=== PATIENT | male | born 1955 | race Caucasian/White ===

== ENCOUNTER 2020-04-06 09:12 | Inpatient (IN) ==
[2020-04-06] MEDS ORDERED: ONDANSETRON 4 MG/2 ML VIAL IV STA (11:14)
[2020-04-06] MEDS ORDERED: HYDROmorphone 2 MG/1 ML VIAL IV STA (11:14)
[2020-04-06] MEDS ORDERED: DEXAMETHASONE 10 MG/1 ML VIAL IV STA (11:15)
[2020-04-06 11:51] LABS: Basophils % 0.5 % (0.0-0.8); Eosinophils % 0.4 % (0.00-10.9); Hematocrit 53.5 VOL% (42.0-52.0); Immature Granulocytes % 0.4 %; Immature Granulocytes Absolute 0.03 #; Lymphocytes # 1.4 10*3/uL (1.4-4.0); Lymphocytes % 16.4 % (21.2-54.2); Mean Corpuscular HGB Conc 33.6 GM/DL (32-36); Mean Corpuscular Volume 92.2 FL (87-102); Mean Platelet Volume 9.2 FL (9.6-12.0); Monocytes % 6.5 % (1.7-12.7); Neutrophils % 75.8 % (38.7-73.9); Platelet Count 156 T/CUMM (130-400); Red Cell Distribution Width 11.9 % (9.3-17.3); White Blood Count 8.4 T/CUMM (4-12)
[2020-04-06 12:03] LABS: Bilirubin,Urine Negative (Negative); Blood, Urine Negative (Negative); Glucose,Urine (UA) Negative (Negative); Ketones,Urine Negative (Negative); Mucus,Urine Occasional /LPF (Occasional); Nitrite,Urine Negative (Negative); Protein,Urine Negative; RBC,Urine 1 /HPF (0-4); Urine Appearance CLEAR (Clear); Urine Color Yellow (Yellow); Urine Urobilinogen < 2.0 EU/DL (0.2-1.0)
[2020-04-06 12:08] LABS: Albumin 4.3 G/DL (3.4-5.0); Bilirubin,Total 0.9 MG/DL (0.2-1.0); Calcium 9.8 MG/DL (8.5-10.1); Osmolality,Calculated 271.1 MOS/KG (273-304); Potassium 4.2 MMOL/L (3.5-5.1); Total Protein 8.2 G/DL (6.4-8.3)
[2020-04-06 13:38] LABS: INR 1.1; PT Patient Result 11.8 SECS (9.8-11.9); Partial Thromboplastin Time 28.3 SECS (23.9-33.8)
[2020-04-06] MEDS ORDERED: GLUCAGON 1 MG VIAL IM PRN (14:04)
[2020-04-06] MEDS ORDERED: DEXTROSE 50% 25 GM/50 ML VIAL IV PRN (14:04)
[2020-04-06] MEDS ORDERED: hydrALAZINE 20 MG/1 ML VIAL IV PRN (14:04)
[2020-04-06] MEDS ORDERED: ACETAMINOPHEN 325 MG TABLET PO PRN (14:04)
[2020-04-06] MEDS ORDERED: DOCUSATE SODIUM 100 MG CAPSULE PO PRN (14:04)
[2020-04-06] MEDS ORDERED: ONDANSETRON 4 MG/2 ML VIAL IV PRN (14:04)
[2020-04-06] MEDS: SODIUM CHLORIDE 0.9% 1,000 ML IV SCH (15:40)
[2020-04-06] MEDS: DEXAMETHASONE 4 MG TABLET PO SCH ×2 (15:44→21:22)
[2020-04-06] MEDS: BUPRENORPHINE NALOXONE BUCCAL SCH (21:21)
[2020-04-07 06:00] LABS: Basophils % 0.1 % (0.0-0.8); Hematocrit 48.5 VOL% (42.0-52.0); Hemoglobin 16.8 GM/DL (14.0-18.0); Immature Granulocytes % 0.3 %; Immature Granulocytes Absolute 0.03 #; Lymphocytes % 10.3 % (21.2-54.2); Mean Corpuscular HGB Conc 34.6 GM/DL (32-36); Mean Platelet Volume 9.4 FL (9.6-12.0); Monocytes % 4.2 % (1.7-12.7); Neutrophils % 85.1 % (38.7-73.9); Platelet Count 150 T/CUMM (130-400); Red Blood Count 5.39 MC/CUMM (3.8-5.5); Red Cell Distribution Width 11.7 % (9.3-17.3); White Blood Count 9.5 T/CUMM (4-12)
[2020-04-07 06:35] LABS: Albumin 3.7 G/DL (3.4-5.0); Bilirubin,Total 0.8 MG/DL (0.2-1.0); Calcium 9.5 MG/DL (8.5-10.1); Osmolality,Calculated 275.1 MOS/KG (273-304); Potassium 4.6 MMOL/L (3.5-5.1); Risk Ratio 4.92; Thyroid Stimulating Hormone 0.088 uIU/ml (0.358-3.74); Total Protein 7.3 G/DL (6.4-8.3); VLDL CHOLESTEROL 8.8 MG/DL
[2020-04-07 08:57] LABS: Free T4 (Free Thyroxine) 0.99 NG/DL (0.76-1.46)
[2020-04-07] MEDS ORDERED: DIAZEPAM 5 MG TABLET PO ONE (09:22)
[2020-04-07] MEDS ORDERED: SODIUM CHLORIDE 0.45% 1,000 ML IV SCH (09:30)
[2020-04-07] MEDS: DEXAMETHASONE 4 MG TABLET PO SCH ×3 (09:40→21:40)
[2020-04-07] MEDS: PANTOPRAZOLE 40 MG TABLET PO SCH (09:40)
[2020-04-07] MEDS: BUPRENORPHINE NALOXONE BUCCAL SCH ×2 (11:58→21:42)
[2020-04-07] MEDS ORDERED: NICOTINE 21 MG/24 HR PATCH TRANSDERM PRN (11:58)
[2020-04-07] MEDS ORDERED: SCOPOLAMINE 1.5 MG PATCH TRANSDERM SCH (12:00)
[2020-04-07] MEDS: SODIUM CHLORIDE 0.9% 1,000 ML IV SCH (15:30)
[2020-04-08 06:28] LABS: Basophils % 0.1 % (0.0-0.8); Hematocrit 42.3 VOL% (42.0-52.0); Hemoglobin 14.9 GM/DL (14.0-18.0); Immature Granulocytes % 0.4 %; Immature Granulocytes Absolute 0.05 #; Lymphocytes # 1.3 10*3/uL (1.4-4.0); Lymphocytes % 10.5 % (21.2-54.2); Mean Corpuscular HGB Conc 35.2 GM/DL (32-36); Mean Corpuscular Volume 89.2 FL (87-102); Mean Platelet Volume 9.7 FL (9.6-12.0); Monocytes % 6.4 % (1.7-12.7); Neutrophils % 82.6 % (38.7-73.9); Platelet Count 134 T/CUMM (130-400); Red Blood Count 4.74 MC/CUMM (3.8-5.5); Red Cell Distribution Width 11.8 % (9.3-17.3); White Blood Count 11.9 T/CUMM (4-12)
[2020-04-08 07:28] LABS: Albumin 3.2 G/DL (3.4-5.0); Bilirubin,Total 1.4 MG/DL (0.2-1.0); Calcium 9.2 MG/DL (8.5-10.1); Potassium 4.6 MMOL/L (3.5-5.1); Total Protein 6.3 G/DL (6.4-8.3)
[2020-04-08] MEDS ORDERED: DIAZEPAM 5 MG TABLET PO ONE (08:00)
[2020-04-08] MEDS: DEXAMETHASONE 4 MG TABLET PO SCH ×3 (09:49→20:34)
[2020-04-08] MEDS: PANTOPRAZOLE 40 MG TABLET PO SCH (09:50)
[2020-04-08] MEDS: SODIUM CHLORIDE 0.9% 1,000 ML IV SCH (10:00)
[2020-04-08] MEDS: BUPRENORPHINE NALOXONE BUCCAL SCH ×2 (11:15→20:35)
[2020-04-09] MEDS: DEXAMETHASONE 4 MG TABLET PO SCH (08:35)
[2020-04-09] MEDS: PANTOPRAZOLE 40 MG TABLET PO SCH (08:35)
[2020-04-09] MEDS: BUPRENORPHINE NALOXONE BUCCAL SCH (08:49)
[2020-04-09 10:15] VITALS: BP 141/65
== END 2020-04-09 13:41 | disposition hospice, home (50) | DRG 54 ==
LOC: N.ED 09:12 → N.EDINP 14:04 → N.4E 16:15
PROVIDERS: ADMIT Internal Medicine; ATTEND Internal Medicine

== ENCOUNTER 2021-01-16 21:11 | Inpatient (IN) ==
[2021-01-16 21:38] LABS: Eosinophils % 0.1 % (0.00-10.9); Hematocrit 33.4 VOL% (42.0-52.0); Hemoglobin 10.9 GM/DL (14.0-18.0); Immature Granulocytes % 0.6 %; Immature Granulocytes Absolute 0.06 #; Lymphocytes # 0.2 10*3/uL (1.4-4.0); Lymphocytes % 1.9 % (21.2-54.2); Mean Corpuscular HGB Conc 32.6 GM/DL (32-36); Mean Corpuscular Volume 99.1 FL (87-102); Mean Platelet Volume 10.5 FL (9.6-12.0); Monocytes % 6.7 % (1.7-12.7); Neutrophils % 90.7 % (38.7-73.9); Platelet Count 95 T/CUMM (130-400); Red Blood Count 3.37 MC/CUMM (3.8-5.5); Red Cell Distribution Width 15.5 % (9.3-17.3); White Blood Count 10.1 T/CUMM (4-12)
[2021-01-16 21:55] LABS: Alanine Aminotransferase 86 U/L (16-61); Albumin 2.6 G/DL (3.4-5.0); Alkaline Phosphatase 202 U/L (45-117); Aspartate Amino Transferase 29 U/L (0-37); Blood Urea Nitrogen 28 MG/DL (7-18); Calcium 10.6 MG/DL (8.5-10.1); Carbon Dioxide 29 MMOL/L (21-32); Estimated Glom Filtration Rate 108 ML/MIN; Glucose 91 MG/DL (74-106); Osmolality,Calculated 284.4 MOS/KG (273-304); Potassium 4.6 MMOL/L (3.5-5.1); Sodium 140 MMOL/L (136-145); Total Protein 5.7 G/DL (6.4-8.2)
[2021-01-16 22:18] LABS: Lactic Acid 2.2 MMOL/L (0.4-2.0)
[2021-01-16] MEDS ORDERED: SODIUM CHLORIDE 0.9% 2,000 ML IV STA (22:48)
[2021-01-16 23:08] LABS: Bilirubin,Urine Negative (Negative); Blood, Urine Negative (Negative); Glucose,Urine (UA) Negative (Negative); Ketones,Urine Negative (Negative); Mucus,Urine Occasional /LPF (Occasional); Nitrite,Urine Negative (Negative); Protein,Urine Negative; RBC,Urine 3 /HPF (0-4); Urine Appearance CLEAR (Clear); Urine Color Yellow (Yellow); Urine Specific Gravity 1.016 (1.001-1.035)
[2021-01-16] MEDS ORDERED: LEVOFLOXACIN INJ 750 MG/150 ML PREMIX IV STA (23:33)
[2021-01-17] MEDS ORDERED: DEXAMETHASONE 4 MG TABLET ONE (09:47)
[2021-01-17] MEDS ORDERED: CITALOPRAM 20 MG TABLET ONE (09:47)
[2021-01-17] MEDS ORDERED: ENOXAPARIN 40 MG/0.4 ML SYRINGE ONE (09:47)
[2021-01-17] MEDS ORDERED: MEMANTINE 10 MG TABLET ONE (09:47)
[2021-01-17] MEDS ORDERED: PANTOPRAZOLE 40 MG TABLET PO ONE (09:47)
[2021-01-17] MEDS: MEMANTINE 10 MG TABLET PO SCH (09:50)
[2021-01-17] MEDS: PANTOPRAZOLE 40 MG TABLET PO SCH (09:50)
[2021-01-17] MEDS: CITALOPRAM 20 MG TABLET PO SCH (09:50)
[2021-01-17] MEDS ORDERED: DEXAMETHASONE INJ 40 MG in SODIUM CHLORIDE 0.9% 50 ML IV ONE (13:00)
[2021-01-17 14:36] LABS: Albumin 2.2 G/DL (3.4-5.0); Bilirubin,Total 0.4 MG/DL (0.20-1.00); Osmolality,Calculated 282.4 MOS/KG (273-304); Potassium 4.1 MMOL/L (3.5-5.1); Total Protein 5.2 G/DL (6.4-8.2)
[2021-01-17] MEDS ORDERED: ENOXAPARIN 40 MG/0.4 ML SYRINGE SUBCUT SCH (16:00)
[2021-01-17 17:05] LABS: Eosinophils % 0.1 % (0.00-10.9); Hematocrit 31.8 VOL% (42.0-52.0); Hemoglobin 10.5 GM/DL (14.0-18.0); Immature Granulocytes % 0.8 %; Immature Granulocytes Absolute 0.06 #; Lymphocytes # 0.2 10*3/uL (1.4-4.0); Lymphocytes % 2.1 % (21.2-54.2); Mean Corpuscular Volume 98.1 FL (87-102); Mean Platelet Volume 10.3 FL (9.6-12.0); Monocytes % 4.1 % (1.7-12.7); Neutrophils % 92.9 % (38.7-73.9); Platelet Count 87 T/CUMM (130-400); Red Blood Count 3.24 MC/CUMM (3.8-5.5); Red Cell Distribution Width 15.1 % (9.3-17.3); White Blood Count 7.7 T/CUMM (4-12)
[2021-01-17 17:09] LABS: Red Blood Count 3.29 MC/CUMM (3.8-5.5); White Blood Count 8.7 T/CUMM (4-12)
[2021-01-17 17:10] LABS: Basophils % 0.1 % (0.0-0.8); Eosinophils % 0.2 % (0.00-10.9); Hematocrit 32.9 VOL% (42.0-52.0); Hemoglobin 10.7 GM/DL (14.0-18.0); Immature Granulocytes % 0.5 %; Immature Granulocytes Absolute 0.04 #; Lymphocytes # 0.2 10*3/uL (1.4-4.0); Lymphocytes % 2.7 % (21.2-54.2); Mean Corpuscular HGB Conc 32.5 GM/DL (32-36); Mean Platelet Volume 10.6 FL (9.6-12.0); Monocytes % 8.2 % (1.7-12.7); Neutrophils % 88.3 % (38.7-73.9); Platelet Count 80 T/CUMM (130-400); Red Cell Distribution Width 15.2 % (9.3-17.3)
[2021-01-17 17:11] LABS: Lymphocytes 2 % (20-55); Platelet Estimate Adequate; Segmented Neutrophils 92 % (50-85); Total Cells Counted 100
[2021-01-17 17:45] LABS: Folate 23.07 NG/ML (5.38-24.0); Vitamin B12 576 PG/ML (211-911)
[2021-01-17] MEDS: SODIUM CHLORIDE 0.9% 1,000 ML IV SCH (17:53)
[2021-01-17] MEDS: DOXYCYCLINE HYCLATE INJ 100 MG in SODIUM CHLORIDE 0.9% 100 ML IV SCH (17:53)
[2021-01-17 19:14] LABS: Band Neutrophils 3 % (0-10); Lymphocytes 1 % (20-55); Platelet Estimate Adequate; Polychromasia Slight; Segmented Neutrophils 95 % (50-85); Total Cells Counted 100
[2021-01-17 19:36] LABS: Sedimentation Rate-Westergren 65 MM/HR (0-20)
[2021-01-18] MEDS: MEMANTINE 10 MG TABLET PO SCH ×3 (00:37→21:41)
[2021-01-18] MEDS: LEVOFLOXACIN INJ 750 MG/150 ML PREMIX IV SCH ×2 (00:47→01:22)
[2021-01-18] MEDS: DOXYCYCLINE HYCLATE INJ 100 MG in SODIUM CHLORIDE 0.9% 100 ML IV SCH ×2 (05:07→21:41)
[2021-01-18] MEDS: ACETAMINOPHEN 325 MG TABLET PO PRN (05:13)
[2021-01-18 06:06] LABS: Hematocrit 30.1 VOL% (42.0-52.0); Hemoglobin 9.9 GM/DL (14.0-18.0); Immature Granulocytes % 0.9 %; Immature Granulocytes Absolute 0.06 #; Lymphocytes # 0.2 10*3/uL (1.4-4.0); Lymphocytes % 3.4 % (21.2-54.2); Mean Corpuscular HGB Conc 32.9 GM/DL (32-36); Mean Corpuscular Volume 97.7 FL (87-102); Mean Platelet Volume 11.1 FL (9.6-12.0); Neutrophils % 87.7 % (38.7-73.9); Platelet Count 84 T/CUMM (130-400); Red Blood Count 3.08 MC/CUMM (3.8-5.5); Red Cell Distribution Width 14.9 % (9.3-17.3); White Blood Count 6.7 T/CUMM (4-12)
[2021-01-18 06:30] LABS: Lymphocytes 2 % (20-55); Segmented Neutrophils 92 % (50-85); Total Cells Counted 100
[2021-01-18 06:31] LABS: Macrocytosis Slight; Platelet Estimate Decreased
[2021-01-18 06:34] LABS: Albumin 2.3 G/DL (3.4-5.0); Bilirubin,Total 0.8 MG/DL (0.20-1.00); Calcium 10.6 MG/DL (8.5-10.1); Potassium 3.9 MMOL/L (3.5-5.1); Total Protein 5.3 G/DL (6.4-8.2)
[2021-01-18] MEDS: PANTOPRAZOLE 40 MG TABLET PO SCH (09:49)
[2021-01-18] MEDS: CITALOPRAM 20 MG TABLET PO SCH (09:49)
[2021-01-18 10:30] LABS: Hemoglobin A1 (Alkaline) 98.1 % (96.5-98.5); Hemoglobin A2 (Alkaline) 1.9 % (1.5-3.5)
[2021-01-18] MEDS: DEXAMETHASONE INJ 20 MG in SODIUM CHLORIDE 0.9% 50 ML IV SCH (11:08)
[2021-01-18] MEDS: SODIUM CHLORIDE 0.9% 1,000 ML IV SCH (14:25)
[2021-01-19 02:06] LABS: Basophils % 0.1 % (0.0-0.8); Hematocrit 31.4 VOL% (42.0-52.0); Hemoglobin 10.4 GM/DL (14.0-18.0); Immature Granulocytes Absolute 0.09 #; Lymphocytes # 0.2 10*3/uL (1.4-4.0); Lymphocytes % 2.3 % (21.2-54.2); Mean Corpuscular HGB Conc 33.1 GM/DL (32-36); Mean Corpuscular Volume 96.6 FL (87-102); Mean Platelet Volume 10.5 FL (9.6-12.0); Monocytes % 7.1 % (1.7-12.7); Neutrophils % 89.5 % (38.7-73.9); Platelet Count 75 T/CUMM (130-400); Red Blood Count 3.25 MC/CUMM (3.8-5.5); Red Cell Distribution Width 14.6 % (9.3-17.3); White Blood Count 8.7 T/CUMM (4-12)
[2021-01-19 02:26] LABS: Calcium 10.2 MG/DL (8.5-10.1); Osmolality,Calculated 281.5 MOS/KG (273-304); Potassium 3.9 MMOL/L (3.5-5.1)
[2021-01-19] MEDS: ACETAMINOPHEN 325 MG TABLET PO PRN ×2 (02:46→20:42)
[2021-01-19 02:57] LABS: Lymphocytes 5 % (20-55); Platelet Estimate Normal; Segmented Neutrophils 91 % (50-85); Total Cells Counted 100
[2021-01-19 02:58] LABS: Hypochromasia Slight; Ovalocytes Few; Polychromasia Few
[2021-01-19 02:59] LABS: Schistocytes Slight
[2021-01-19] MEDS: SODIUM CHLORIDE 0.9% 1,000 ML IV SCH ×2 (05:11→20:42)
[2021-01-19] MEDS: CITALOPRAM 20 MG TABLET PO SCH (08:18)
[2021-01-19] MEDS: DEXAMETHASONE INJ 20 MG in SODIUM CHLORIDE 0.9% 50 ML IV SCH (08:18)
[2021-01-19] MEDS: PANTOPRAZOLE 40 MG TABLET PO SCH (08:18)
[2021-01-19] MEDS: MEMANTINE 10 MG TABLET PO SCH ×2 (08:18→20:42)
[2021-01-19] MEDS: DOXYCYCLINE HYCLATE INJ 100 MG in SODIUM CHLORIDE 0.9% 100 ML IV SCH (08:39)
[2021-01-19] MEDS: LEVOFLOXACIN INJ 750 MG/150 ML PREMIX IV SCH (09:00)
[2021-01-19] MEDS: LEVOFLOXACIN 750 MG TABLET PO SCH (11:21)
[2021-01-19] MEDS: predniSONE 5 MG TABLET PO SCH (20:42)
[2021-01-19] MEDS: ENOXAPARIN 30 MG/0.3 ML SYRINGE SUBCUT SCH (20:42)
[2021-01-19] MEDS: DOXYCYCLINE HYCLATE 100 MG CAPSULE PO SCH (20:42)
[2021-01-20] MEDS: MEMANTINE 10 MG TABLET PO SCH ×2 (09:27→21:36)
[2021-01-20] MEDS: PANTOPRAZOLE 40 MG TABLET PO SCH (09:27)
[2021-01-20] MEDS: CITALOPRAM 20 MG TABLET PO SCH (09:27)
[2021-01-20] MEDS: DOXYCYCLINE HYCLATE 100 MG CAPSULE PO SCH ×2 (09:27→21:37)
[2021-01-20] MEDS: LEVOFLOXACIN 750 MG TABLET PO SCH (09:27)
[2021-01-20] MEDS: predniSONE 5 MG TABLET PO SCH ×2 (09:28→21:37)
[2021-01-20] MEDS: SODIUM CHLORIDE 0.9% 1,000 ML IV SCH (09:29)
[2021-01-20] MEDS: ENOXAPARIN 30 MG/0.3 ML SYRINGE SUBCUT SCH (21:37)
[2021-01-21] MEDS: SODIUM CHLORIDE 0.9% 1,000 ML IV SCH (03:36)
[2021-01-21] MEDS: MEMANTINE 10 MG TABLET PO SCH ×2 (08:55→20:18)
[2021-01-21] MEDS: predniSONE 5 MG TABLET PO SCH ×2 (08:55→20:18)
[2021-01-21] MEDS: PANTOPRAZOLE 40 MG TABLET PO SCH (08:55)
[2021-01-21] MEDS: DOXYCYCLINE HYCLATE 100 MG CAPSULE PO SCH ×2 (08:55→20:18)
[2021-01-21] MEDS: CITALOPRAM 20 MG TABLET PO SCH (08:55)
[2021-01-21] MEDS: LEVOFLOXACIN 750 MG TABLET PO SCH (08:55)
[2021-01-21] MEDS ORDERED: MAGNESIUM HYDROXIDE SUSP 30 ML UDCUP PO ONE (13:00)
[2021-01-21] MEDS: DOCUSATE SODIUM 100 MG CAPSULE PO SCH ×2 (14:13→20:18)
[2021-01-21] MEDS: POLYETHYLENE GLYCOL POWDER 17 GM PACK PO SCH (14:14)
[2021-01-21] MEDS: ENOXAPARIN 30 MG/0.3 ML SYRINGE SUBCUT SCH (20:17)
[2021-01-22 06:18] LABS: Eosinophils # 0.1 10*3/uL (0.0-0.87); Hematocrit 30.7 VOL% (42.0-52.0); Hemoglobin 10.1 GM/DL (14.0-18.0); Immature Granulocytes % 1.5 %; Immature Granulocytes Absolute 0.09 #; Lymphocytes # 0.2 10*3/uL (1.4-4.0); Lymphocytes % 4.1 % (21.2-54.2); Mean Corpuscular HGB Conc 32.9 GM/DL (32-36); Mean Corpuscular Volume 98.7 FL (87-102); Mean Platelet Volume 10.7 FL (9.6-12.0); Monocytes % 7.3 % (1.7-12.7); Neutrophils % 86.1 % (38.7-73.9); Platelet Count 69 T/CUMM (130-400); Red Blood Count 3.11 MC/CUMM (3.8-5.5); Red Cell Distribution Width 14.8 % (9.3-17.3); White Blood Count 5.9 T/CUMM (4-12)
[2021-01-22 06:28] LABS: Band Neutrophils 1 % (0-10); Eosinophils 1 % (0-10); Lymphocytes 5 % (20-55); Platelet Estimate Decreased; Segmented Neutrophils 91 % (50-85); Total Cells Counted 100
[2021-01-22 06:35] LABS: Calcium 9.3 MG/DL (8.5-10.1); Osmolality,Calculated 280.4 MOS/KG (273-304); Potassium 3.8 MMOL/L (3.5-5.1)
[2021-01-22] MEDS: LEVOFLOXACIN 750 MG TABLET PO SCH (09:31)
[2021-01-22] MEDS: PANTOPRAZOLE 40 MG TABLET PO SCH (09:31)
[2021-01-22] MEDS: CITALOPRAM 20 MG TABLET PO SCH (09:31)
[2021-01-22] MEDS: MEMANTINE 10 MG TABLET PO SCH ×2 (09:31→20:59)
[2021-01-22] MEDS: predniSONE 5 MG TABLET PO SCH ×2 (09:31→20:59)
[2021-01-22] MEDS: DOXYCYCLINE HYCLATE 100 MG CAPSULE PO SCH ×2 (09:31→20:59)
[2021-01-22] MEDS: DOCUSATE SODIUM 100 MG CAPSULE PO SCH ×2 (09:31→20:59)
[2021-01-22] MEDS: POLYETHYLENE GLYCOL POWDER 17 GM PACK PO SCH (09:44)
[2021-01-22] MEDS: MINERAL OIL/PETROLATUM OPH OINT 3.5 GM TUBE BOTH EYES SCH ×2 (13:30→20:59)
[2021-01-22] MEDS: ENOXAPARIN 30 MG/0.3 ML SYRINGE SUBCUT SCH (20:59)
[2021-01-23] MEDS: DOXYCYCLINE HYCLATE 100 MG CAPSULE PO SCH ×2 (09:18→21:02)
[2021-01-23] MEDS: POLYETHYLENE GLYCOL POWDER 17 GM PACK PO SCH (09:18)
[2021-01-23] MEDS: CITALOPRAM 20 MG TABLET PO SCH (09:18)
[2021-01-23] MEDS: DOCUSATE SODIUM 100 MG CAPSULE PO SCH ×2 (09:18→21:02)
[2021-01-23] MEDS: MEMANTINE 10 MG TABLET PO SCH ×2 (09:19→21:01)
[2021-01-23] MEDS: predniSONE 5 MG TABLET PO SCH ×2 (09:20→21:02)
[2021-01-23] MEDS: LEVOFLOXACIN 750 MG TABLET PO SCH (09:20)
[2021-01-23] MEDS: PANTOPRAZOLE 40 MG TABLET PO SCH (09:20)
[2021-01-23] MEDS: MINERAL OIL/PETROLATUM OPH OINT 3.5 GM TUBE BOTH EYES SCH ×2 (09:21→21:02)
[2021-01-23] MEDS: LINACLOTIDE 145 MCG CAPSULE PO SCH (13:34)
[2021-01-23] MEDS ORDERED: SODIUM CHLORIDE 0.9% 250 ML IV ONE (16:02)
[2021-01-23] MEDS: ENOXAPARIN 30 MG/0.3 ML SYRINGE SUBCUT SCH (21:02)
[2021-01-24 04:55] LABS: Basophils % 0.2 % (0.0-0.8); Eosinophils # 0.1 10*3/uL (0.0-0.87); Eosinophils % 0.9 % (0.00-10.9); Hematocrit 31.7 VOL% (42.0-52.0); Hemoglobin 10.3 GM/DL (14.0-18.0); Immature Granulocytes % 1.5 %; Lymphocytes # 0.2 10*3/uL (1.4-4.0); Lymphocytes % 3.6 % (21.2-54.2); Mean Corpuscular HGB Conc 32.5 GM/DL (32-36); Mean Corpuscular Volume 100.3 FL (87-102); Mean Platelet Volume 10.7 FL (9.6-12.0); Monocytes % 7.5 % (1.7-12.7); Neutrophils % 86.3 % (38.7-73.9); Platelet Count 61 T/CUMM (130-400); Red Blood Count 3.16 MC/CUMM (3.8-5.5); Red Cell Distribution Width 14.4 % (9.3-17.3); White Blood Count 6.7 T/CUMM (4-12)
[2021-01-24 05:12] LABS: Osmolality,Calculated 278.5 MOS/KG (273-304); Potassium 4.5 MMOL/L (3.5-5.1)
[2021-01-24 05:15] LABS: Band Neutrophils 2 % (0-10); Eosinophils 1 % (0-10); Hypochromasia 1+; Lymphocytes 5 % (20-55); Myelocytes 1 %; Polychromasia Slight; Segmented Neutrophils 86 % (50-85); Target Cells Slight; Total Cells Counted 100
[2021-01-24 05:16] LABS: Macrocytosis Slight; Platelet Estimate Decreased
[2021-01-24] MEDS: POLYETHYLENE GLYCOL POWDER 17 GM PACK PO SCH (08:38)
[2021-01-24] MEDS: LINACLOTIDE 145 MCG CAPSULE PO SCH (08:40)
[2021-01-24] MEDS: CITALOPRAM 20 MG TABLET PO SCH (08:40)
[2021-01-24] MEDS: DOCUSATE SODIUM 100 MG CAPSULE PO SCH ×2 (08:41→21:05)
[2021-01-24] MEDS: PANTOPRAZOLE 40 MG TABLET PO SCH (08:41)
[2021-01-24] MEDS: LEVOFLOXACIN 750 MG TABLET PO SCH (08:42)
[2021-01-24] MEDS: MEMANTINE 10 MG TABLET PO SCH ×2 (08:42→21:05)
[2021-01-24] MEDS: DOXYCYCLINE HYCLATE 100 MG CAPSULE PO SCH ×2 (08:43→21:04)
[2021-01-24] MEDS: predniSONE 5 MG TABLET PO SCH ×2 (08:43→21:04)
[2021-01-24] MEDS: MINERAL OIL/PETROLATUM OPH OINT 3.5 GM TUBE BOTH EYES SCH ×2 (08:43→21:06)
[2021-01-24] MEDS ORDERED: BISACODYL 10 MG SUPP RECTAL PRN (13:23)
[2021-01-24] MEDS: ACETAMINOPHEN 325 MG TABLET PO PRN (21:04)
[2021-01-24] MEDS: ENOXAPARIN 30 MG/0.3 ML SYRINGE SUBCUT SCH (21:06)
[2021-01-25] MEDS: ACETAMINOPHEN 325 MG TABLET PO PRN (06:09)
[2021-01-25] MEDS: SODIUM CHLORIDE 0.9% 1,000 ML IV SCH (09:42)
[2021-01-25] MEDS: CITALOPRAM 20 MG TABLET PO SCH (13:19)
[2021-01-25] MEDS: predniSONE 5 MG TABLET PO SCH ×2 (13:19→23:12)
[2021-01-25] MEDS: LINACLOTIDE 145 MCG CAPSULE PO SCH (13:19)
[2021-01-25] MEDS: LEVOFLOXACIN 750 MG TABLET PO SCH (13:19)
[2021-01-25] MEDS: POLYETHYLENE GLYCOL POWDER 17 GM PACK PO SCH (13:19)
[2021-01-25] MEDS: MEMANTINE 10 MG TABLET PO SCH ×2 (13:19→23:11)
[2021-01-25] MEDS: DOCUSATE SODIUM 100 MG CAPSULE PO SCH ×2 (13:20→23:10)
[2021-01-25] MEDS: DOXYCYCLINE HYCLATE 100 MG CAPSULE PO SCH ×2 (13:20→23:11)
[2021-01-25] MEDS: PANTOPRAZOLE 40 MG TABLET PO SCH (13:20)
[2021-01-25] MEDS: MINERAL OIL/PETROLATUM OPH OINT 3.5 GM TUBE BOTH EYES SCH ×2 (13:30→23:12)
[2021-01-25] MEDS: ENOXAPARIN 30 MG/0.3 ML SYRINGE SUBCUT SCH (23:12)
[2021-01-26] MEDS: predniSONE 5 MG TABLET PO SCH ×2 (09:08→21:41)
[2021-01-26] MEDS: DOXYCYCLINE HYCLATE 100 MG CAPSULE PO SCH (09:08)
[2021-01-26] MEDS: PANTOPRAZOLE 40 MG TABLET PO SCH (09:08)
[2021-01-26] MEDS: DOCUSATE SODIUM 100 MG CAPSULE PO SCH ×2 (09:08→21:41)
[2021-01-26] MEDS: MEMANTINE 10 MG TABLET PO SCH ×2 (09:08→21:41)
[2021-01-26] MEDS: LINACLOTIDE 145 MCG CAPSULE PO SCH (09:08)
[2021-01-26] MEDS: LEVOFLOXACIN 750 MG TABLET PO SCH (09:08)
[2021-01-26] MEDS: CITALOPRAM 20 MG TABLET PO SCH (09:09)
[2021-01-26] MEDS: MINERAL OIL/PETROLATUM OPH OINT 3.5 GM TUBE BOTH EYES SCH ×2 (09:10→21:42)
[2021-01-26] MEDS: POLYETHYLENE GLYCOL POWDER 17 GM PACK PO SCH (09:10)
[2021-01-26] MEDS ORDERED: TUBERCULIN SKIN TEST 0.1 ML SYRINGE INTRADERM ONE (11:00)
[2021-01-26] MEDS: SODIUM CHLORIDE 0.9% 1,000 ML IV SCH (17:38)
[2021-01-26] MEDS: ENOXAPARIN 30 MG/0.3 ML SYRINGE SUBCUT SCH (21:42)
[2021-01-27 05:51] LABS: Basophils % 0.1 % (0.0-0.8); Eosinophils # 0.1 10*3/uL (0.0-0.87); Eosinophils % 0.7 % (0.00-10.9); Hematocrit 29.3 VOL% (42.0-52.0); Hemoglobin 9.6 GM/DL (14.0-18.0); Immature Granulocytes % 0.7 %; Immature Granulocytes Absolute 0.05 #; Lymphocytes # 0.2 10*3/uL (1.4-4.0); Lymphocytes % 2.4 % (21.2-54.2); Mean Corpuscular HGB Conc 32.8 GM/DL (32-36); Mean Corpuscular Volume 100.3 FL (87-102); Monocytes % 7.3 % (1.7-12.7); Neutrophils % 88.8 % (38.7-73.9); Red Blood Count 2.92 MC/CUMM (3.8-5.5); Red Cell Distribution Width 13.4 % (9.3-17.3); White Blood Count 7.1 T/CUMM (4-12)
[2021-01-27 06:09] LABS: Calcium 12.3 MG/DL (8.5-10.1); Osmolality,Calculated 279.8 MOS/KG (273-304); Potassium 3.8 MMOL/L (3.5-5.1)
[2021-01-27 06:09] LABS: Platelet Count 68 T/CUMM (130-400)
[2021-01-27 06:31] LABS: Eosinophils 1 % (0-10); Hypochromasia 1+; Lymphocytes 3 % (20-55); Microcytosis 1+; Platelet Estimate Decreased; Segmented Neutrophils 90 % (50-85); Total Cells Counted 100
[2021-01-27] MEDS: LINACLOTIDE 145 MCG CAPSULE PO SCH (10:15)
[2021-01-27] MEDS: DOCUSATE SODIUM 100 MG CAPSULE PO SCH (10:30)
[2021-01-27] MEDS: MEMANTINE 10 MG TABLET PO SCH (10:30)
[2021-01-27] MEDS: CITALOPRAM 20 MG TABLET PO SCH (10:30)
[2021-01-27] MEDS: predniSONE 5 MG TABLET PO SCH (10:30)
[2021-01-27] MEDS: MINERAL OIL/PETROLATUM OPH OINT 3.5 GM TUBE BOTH EYES SCH (10:30)
[2021-01-27] MEDS: PANTOPRAZOLE 40 MG TABLET PO SCH (10:30)
[2021-01-27] MEDS: POLYETHYLENE GLYCOL POWDER 17 GM PACK PO SCH (10:51)
[2021-01-27 11:45] VITALS: BP 105/64
== END 2021-01-27 14:14 | disposition swing bed (61) | DRG 54 ==
LOC: EDUNIT# → EDBD → N.ED 21:11 → N.EDINP 01-17 15:28 → SUATTDRO 01-17 15:28 → MERGE 01-17 15:28 → N.5E 01-17 17:54
PROVIDERS: ADMIT Internal Medicine; ATTEND Internal Medicine

== ENCOUNTER 2021-01-28 20:28 | Inpatient (IN) ==
[2021-01-28] MEDS ORDERED: SODIUM CHLORIDE 0.9% 1,000 ML IV STA (21:05)
[2021-01-28 21:51] LABS: Basophils % 0.1 % (0.0-0.8); Eosinophils % 0.3 % (0.00-10.9); Hematocrit 29.9 VOL% (42.0-52.0); Hemoglobin 9.8 GM/DL (14.0-18.0); Immature Granulocytes % 0.8 %; Immature Granulocytes Absolute 0.06 #; Lymphocytes # 0.2 10*3/uL (1.4-4.0); Lymphocytes % 3.4 % (21.2-54.2); Mean Corpuscular HGB Conc 32.8 GM/DL (32-36); Mean Corpuscular Volume 99.3 FL (87-102); Mean Platelet Volume 10.6 FL (9.6-12.0); Monocytes % 8.4 % (1.7-12.7); Platelet Count 72 T/CUMM (130-400); Red Blood Count 3.01 MC/CUMM (3.8-5.5); Red Cell Distribution Width 13.2 % (9.3-17.3); White Blood Count 7.1 T/CUMM (4-12)
[2021-01-28 22:04] LABS: INR 1.1; PT Patient Result 12.6 SECS (10.5-12.0)
[2021-01-28 22:09] LABS: Albumin 2.3 G/DL (3.4-5.0); Bilirubin,Total 0.8 MG/DL (0.20-1.00); Calcium 12.4 MG/DL (8.5-10.1); Osmolality,Calculated 283.4 MOS/KG (273-304); Potassium 3.6 MMOL/L (3.5-5.1); Total Protein 5.3 G/DL (6.4-8.2)
[2021-01-28 22:11] LABS: Bilirubin,Urine Negative (Negative); Blood, Urine Moderate mg/dL (Negative); Glucose,Urine (UA) 50 mg/dL (Negative); Hyaline Casts,Urine 4 /LPF (0-3); Ketones,Urine Negative (Negative); Mucus,Urine Occasional /LPF (Occasional); Nitrite,Urine Negative (Negative); Protein,Urine Negative; RBC,Urine 64 /HPF (0-4); Squamous Epithelial Cell,Urine Occasional /HPF (0-10); Urine Appearance Slightly Hazy (Clear); Urine Color Yellow (Yellow); Urine Specific Gravity 1.013 (1.001-1.035); Urine Urobilinogen < 2.0 EU/DL (<2.0)
[2021-01-28 22:16] LABS: Band Neutrophils 1 % (0-10); Hypochromasia Slight; Lymphocytes 1 % (20-55); Platelet Estimate Decreased; Segmented Neutrophils 96 % (50-85); Total Cells Counted 100
[2021-01-28 22:16] LABS: Barbiturates Screen,Urine Negative (Negative); Benzodiazepines Screen,Urine Negative (Negative); Cannabinoid Screen,Urine Negative (Negative); Opiate Screen,Urine Positive (Negative); Phencyclidine Screen,Urine Negative (Negative)
[2021-01-29] MEDS ORDERED: ONDANSETRON 4 MG/2 ML VIAL IV PRN (01:17)
[2021-01-29] MEDS ORDERED: DEXTROSE 50% 25 GM/50 ML SYRINGE IV PRN (01:17)
[2021-01-29] MEDS ORDERED: GLUCAGON 1 MG VIAL IM PRN (01:17)
[2021-01-29] MEDS: SODIUM CHLORIDE 0.9% 1,000 ML IV SCH ×3 (03:43→22:45)
[2021-01-29 06:10] LABS: Basophils % 0.1 % (0.0-0.8); Eosinophils % 0.3 % (0.00-10.9); Hematocrit 28.8 VOL% (42.0-52.0); Hemoglobin 9.5 GM/DL (14.0-18.0); Immature Granulocytes % 0.7 %; Immature Granulocytes Absolute 0.05 #; Lymphocytes # 0.2 10*3/uL (1.4-4.0); Lymphocytes % 3.4 % (21.2-54.2); Mean Corpuscular Volume 100.3 FL (87-102); Mean Platelet Volume 9.9 FL (9.6-12.0); Monocytes % 7.2 % (1.7-12.7); Neutrophils % 88.3 % (38.7-73.9); Platelet Count 61 T/CUMM (130-400); Red Blood Count 2.87 MC/CUMM (3.8-5.5); Red Cell Distribution Width 13.2 % (9.3-17.3); White Blood Count 6.7 T/CUMM (4-12)
[2021-01-29 06:28] LABS: Albumin 2.2 G/DL (3.4-5.0); Osmolality,Calculated 281.4 MOS/KG (273-304); Potassium 3.4 MMOL/L (3.5-5.1); Total Protein 5.4 G/DL (6.4-8.2)
[2021-01-29 06:52] LABS: Lymphocytes 6 % (20-55); Segmented Neutrophils 84 % (50-85); Total Cells Counted 100
[2021-01-29 06:53] LABS: Hypochromasia 2+; Platelet Estimate Decreased
[2021-01-29] MEDS ORDERED: ZOLEDRONIC ACID 4 MG/100 ML PREMIX IV ONE (08:00)
[2021-01-29] MEDS: predniSONE 20 MG TABLET PO SCH (09:16)
[2021-01-29] MEDS: MEMANTINE 10 MG TABLET PO SCH ×2 (09:16→23:18)
[2021-01-29] MEDS: PANTOPRAZOLE 40 MG TABLET PO SCH ×2 (09:16)
[2021-01-29] MEDS: CITALOPRAM 20 MG TABLET PO SCH (09:16)
[2021-01-29] MEDS ORDERED: CALCITONIN 400 UNIT/2 ML VIAL IM ONE (09:30)
[2021-01-29] MEDS ORDERED: MAGNESIUM SULF RIDER 2 GM/50 ML PREMIX IV PRN (10:34)
[2021-01-29] MEDS ORDERED: MAGNESIUM SULF RIDER 4 GM/100 ML PREMIX IV PRN (10:34)
[2021-01-30] MEDS: SODIUM CHLORIDE 0.9% 1,000 ML IV SCH ×3 (05:09→20:31)
[2021-01-30 06:51] LABS: Basophils % 0.2 % (0.0-0.8); Eosinophils % 0.3 % (0.00-10.9); Immature Granulocytes % 0.5 %; Immature Granulocytes Absolute 0.03 #; Lymphocytes # 0.2 10*3/uL (1.4-4.0); Lymphocytes % 3.1 % (21.2-54.2); Mean Corpuscular HGB Conc 33.3 GM/DL (32-36); Mean Corpuscular Volume 99.2 FL (87-102); Mean Platelet Volume 10.5 FL (9.6-12.0); Monocytes % 6.4 % (1.7-12.7); Neutrophils % 89.5 % (38.7-73.9); Platelet Count 50 T/CUMM (130-400); Red Blood Count 2.42 MC/CUMM (3.8-5.5); White Blood Count 6.1 T/CUMM (4-12)
[2021-01-30 07:10] LABS: Albumin 1.9 G/DL (3.4-5.0); Bilirubin,Total 0.8 MG/DL (0.20-1.00); Calcium 11.9 MG/DL (8.5-10.1); Osmolality,Calculated 282.3 MOS/KG (273-304); Potassium 3.1 MMOL/L (3.5-5.1); Total Protein 4.8 G/DL (6.4-8.2)
[2021-01-30 07:37] LABS: Band Neutrophils 14 % (0-10); Eosinophils 1 % (0-10); Lymphocytes 2 % (20-55); Platelet Estimate Decreased; Segmented Neutrophils 77 % (50-85); Total Cells Counted 100
[2021-01-30 07:38] LABS: Anisocytosis 1+; Macrocytosis 1+
[2021-01-30] MEDS: MEMANTINE 10 MG TABLET PO SCH ×2 (10:11→20:33)
[2021-01-30] MEDS: predniSONE 20 MG TABLET PO SCH (10:11)
[2021-01-30] MEDS: CITALOPRAM 20 MG TABLET PO SCH (10:12)
[2021-01-30] MEDS: PANTOPRAZOLE 40 MG TABLET PO SCH ×2 (10:12)
[2021-01-30] MEDS: POLYETHYLENE GLYCOL POWDER 17 GM PACK PO SCH ×2 (10:12→10:29)
[2021-01-30] MEDS: ACETAMINOPHEN 325 MG TABLET PO PRN (11:59)
[2021-01-31] MEDS: ACETAMINOPHEN 325 MG TABLET PO PRN ×4 (01:33→23:04)
[2021-01-31] MEDS: SODIUM CHLORIDE 0.9% 1,000 ML IV SCH ×3 (02:54→20:11)
[2021-01-31] MEDS: POLYETHYLENE GLYCOL POWDER 17 GM PACK PO SCH (08:33)
[2021-01-31] MEDS: MEMANTINE 10 MG TABLET PO SCH ×2 (08:35→20:10)
[2021-01-31] MEDS: PANTOPRAZOLE 40 MG TABLET PO SCH ×2 (08:36)
[2021-01-31] MEDS: CITALOPRAM 20 MG TABLET PO SCH (08:36)
[2021-01-31] MEDS: predniSONE 20 MG TABLET PO SCH (08:36)
[2021-01-31 09:03] LABS: Basophils % 0.2 % (0.0-0.8); Eosinophils % 0.6 % (0.00-10.9); Hemoglobin 8.2 GM/DL (14.0-18.0); Immature Granulocytes % 0.6 %; Immature Granulocytes Absolute 0.03 #; Lymphocytes # 0.2 10*3/uL (1.4-4.0); Mean Corpuscular HGB Conc 32.8 GM/DL (32-36); Mean Corpuscular Volume 100.4 FL (87-102); Mean Platelet Volume 11.2 FL (9.6-12.0); Neutrophils % 89.6 % (38.7-73.9); Platelet Count 52 T/CUMM (130-400); Red Blood Count 2.49 MC/CUMM (3.8-5.5)
[2021-01-31 09:16] LABS: Albumin 1.7 G/DL (3.4-5.0); Bilirubin,Total 0.6 MG/DL (0.20-1.00); Calcium 9.8 MG/DL (8.5-10.1); Potassium 2.9 MMOL/L (3.5-5.1); Total Protein 4.8 G/DL (6.4-8.2)
[2021-01-31] MEDS ORDERED: POTASSIUM CHLORIDE 20 MEQ TABLET PO PRN (09:20)
[2021-01-31] MEDS: POTASSIUM BICARB EFFERVESCENT 20 MEQ TAB.EFF PER TUBE PRN ×4 (09:31→16:13)
[2021-01-31 09:32] LABS: Anisocytosis 1+; Band Neutrophils 15 % (0-10); Lymphocytes 4 % (20-55); Nucleated Red Blood Cells 1 (0-5); Platelet Estimate Decreased; Segmented Neutrophils 76 % (50-85); Total Cells Counted 100
[2021-01-31 09:33] LABS: Macrocytosis Slight
[2021-02-01] MEDS: SODIUM CHLORIDE 0.9% 1,000 ML IV SCH ×4 (01:38→23:56)
[2021-02-01] MEDS: ACETAMINOPHEN 325 MG TABLET PO PRN (04:13)
[2021-02-01 07:51] LABS: Basophils % 0.2 % (0.0-0.8); Eosinophils # 0.1 10*3/uL (0.0-0.87); Eosinophils % 1.1 % (0.00-10.9); Hematocrit 23.4 VOL% (42.0-52.0); Hemoglobin 7.7 GM/DL (14.0-18.0); Immature Granulocytes % 0.9 %; Immature Granulocytes Absolute 0.04 #; Lymphocytes # 0.2 10*3/uL (1.4-4.0); Lymphocytes % 3.9 % (21.2-54.2); Mean Corpuscular HGB Conc 32.9 GM/DL (32-36); Mean Corpuscular Volume 99.2 FL (87-102); Mean Platelet Volume 10.8 FL (9.6-12.0); Neutrophils % 86.9 % (38.7-73.9); Platelet Count 53 T/CUMM (130-400); Red Blood Count 2.36 MC/CUMM (3.8-5.5); Red Cell Distribution Width 12.8 % (9.3-17.3); White Blood Count 4.4 T/CUMM (4-12)
[2021-02-01 08:04] LABS: Calcium 9.1 MG/DL (8.5-10.1); Osmolality,Calculated 283.1 MOS/KG (273-304); Potassium 3.1 MMOL/L (3.5-5.1)
[2021-02-01 08:20] LABS: Band Neutrophils 2 % (0-10); Eosinophils 1 % (0-10); Hypochromasia 1+; Lymphocytes 4 % (20-55); Microcytosis 1+; Platelet Estimate Decreased; Segmented Neutrophils 90 % (50-85); Total Cells Counted 100
[2021-02-01] MEDS: CITALOPRAM 20 MG TABLET PO SCH (09:28)
[2021-02-01] MEDS: MEMANTINE 10 MG TABLET PO SCH ×2 (09:29→18:29)
[2021-02-01] MEDS: predniSONE 20 MG TABLET PO SCH (09:29)
[2021-02-01] MEDS: POLYETHYLENE GLYCOL POWDER 17 GM PACK PO SCH (09:29)
[2021-02-01] MEDS: PANTOPRAZOLE 40 MG TABLET PO SCH (09:29)
[2021-02-01] MEDS: POTASSIUM CHLORIDE RIDER 10 MEQ/100 ML PREMIX IV PRN ×3 (20:21→23:56)
[2021-02-02] MEDS: POTASSIUM CHLORIDE RIDER 10 MEQ/100 ML PREMIX IV PRN (01:16)
[2021-02-02] MEDS: ACETAMINOPHEN 325 MG TABLET PO PRN (02:11)
[2021-02-02 06:40] LABS: Eosinophils % 0.5 % (0.00-10.9); Hemoglobin 7.1 GM/DL (14.0-18.0); Immature Granulocytes % 0.5 %; Immature Granulocytes Absolute 0.02 #; Lymphocytes # 0.2 10*3/uL (1.4-4.0); Lymphocytes % 3.4 % (21.2-54.2); Mean Corpuscular HGB Conc 32.3 GM/DL (32-36); Mean Corpuscular Volume 98.7 FL (87-102); Mean Platelet Volume 10.8 FL (9.6-12.0); Monocytes % 7.2 % (1.7-12.7); Neutrophils % 88.4 % (38.7-73.9); Platelet Count 54 T/CUMM (130-400); Red Blood Count 2.23 MC/CUMM (3.8-5.5); White Blood Count 4.4 T/CUMM (4-12)
[2021-02-02 07:01] LABS: Calcium 8.4 MG/DL (8.5-10.1); Potassium 3.2 MMOL/L (3.5-5.1)
[2021-02-02 07:13] LABS: Band Neutrophils 1 % (0-10); Eosinophils 1 % (0-10); Hypochromasia 1+; Lymphocytes 2 % (20-55); Microcytosis 1+; Nucleated Red Blood Cells 1 (0-5); Segmented Neutrophils 94 % (50-85); Total Cells Counted 100
[2021-02-02 07:14] LABS: Platelet Estimate Decreased
[2021-02-02] MEDS: POLYETHYLENE GLYCOL POWDER 17 GM PACK PO SCH (08:19)
[2021-02-02] MEDS: CITALOPRAM 20 MG TABLET PO SCH (08:20)
[2021-02-02] MEDS: predniSONE 20 MG TABLET PO SCH (08:20)
[2021-02-02] MEDS: MEMANTINE 10 MG TABLET PO SCH (08:20)
[2021-02-02] MEDS: PANTOPRAZOLE 40 MG TABLET PO SCH (08:20)
[2021-02-02 08:23] VITALS: BP 126/60
[2021-02-02] MEDS ORDERED: fentaNYL 25 MCG/HR PATCH TRANSDERM SCH (09:00)
== END 2021-02-02 11:18 | disposition hospice, home (50) | DRG 640 ==
LOC: EDBD → EDUNIT# → N.EDINP 20:28 → N.ED 20:28 → SUATTDRO 01-29 01:17 → N.2E 01-29 08:53
PROVIDERS: ADMIT Internal Medicine; ATTEND Internal Medicine Geriatric Medicine